=== PATIENT | female | born 1990 | race Caucasian/White ===

== ENCOUNTER 2017-12-13 13:01 | Emergency (ER) | payer MEDICAID ==
[~2017-12-13] VITALS: Ht 157.5 cm; Wt 47.6 kg
[2017-12-13 13:13] VITALS: BP 128/89; Ht 157.5 cm; Wt 47.6 kg
== END 2017-12-13 15:11 | disposition left against medical advice (07) ==
LOC: ED 13:01
DX: Z53.21 Procedure and treatment not carried out due to patient leaving prior to being seen by health care provider (principal)

== ENCOUNTER 2017-12-24 17:04 | Emergency (ER) | payer MEDICAID ==
[~2017-12-24] VITALS: Ht 157.5 cm; Wt 49.0 kg
[2017-12-24 17:10] VITALS: Ht 157.5 cm; Wt 49.0 kg
[2017-12-24 20:04] VITALS: BP 118/86
== END 2017-12-24 20:09 | disposition home or self-care (01) ==
LOC: ED 17:04
PROC: 2W3PX1Z Immobilization of Left Upper Leg using Splint (ICD-10-PCS; principal; 2017-12-24)
DX: S80.02XA Contusion of left knee, initial encounter (principal); S90.31XA Contusion of right foot, initial encounter; M79.1 Myalgia; V49.9XXA Car occupant (driver) (passenger) injured in unspecified traffic accident, initial encounter; Y92.9 Unspecified place or not applicable
CPT/HCPCS: Q0092